=== PATIENT | male | born 1935 | race Caucasian/White ===

== ENCOUNTER 2021-08-16 06:38 | Inpatient (IN) ==
[2021-08-16] MEDS ORDERED: HYDROmorphone 2 MG/1 ML VIAL IV STA (07:15)
[2021-08-16] MEDS ORDERED: ONDANSETRON 4 MG/2 ML VIAL IV STA (07:15)
[2021-08-16] MEDS ORDERED: SODIUM CHLORIDE 0.9% 1,000 ML IV STA (07:15)
[2021-08-16 08:12] LABS: Basophils % 0.2 % (0.0-0.8); Eosinophils % 0.3 % (0.00-10.9); Hematocrit 39.3 VOL% (42.0-52.0); Hemoglobin 12.6 GM/DL (14.0-18.0); Immature Granulocytes % 0.4 %; Immature Granulocytes Absolute 0.05 #; Lymphocytes # 0.5 10*3/uL (1.4-4.0); Lymphocytes % 3.6 % (21.2-54.2); Mean Corpuscular HGB Conc 32.1 GM/DL (32-36); Mean Corpuscular Volume 101.6 FL (87-102); Mean Platelet Volume 11.5 FL (9.6-12.0); Monocytes % 7.4 % (1.7-12.7); Neutrophils % 88.1 % (38.7-73.9); Platelet Count 179 T/CUMM (130-400); Red Blood Count 3.87 MC/CUMM (3.8-5.5); Red Cell Distribution Width 12.3 % (9.3-17.3); White Blood Count 13.1 T/CUMM (4-12)
[2021-08-16 08:35] LABS: Hypochromasia 1+; Lymphocytes 1 % (20-55); Microcytosis 1+; Platelet Estimate Adequate; Segmented Neutrophils 90 % (50-85); Total Cells Counted 100
[2021-08-16 08:39] LABS: Albumin 3.6 G/DL (3.4-5.0); Bilirubin,Total 0.5 MG/DL (0.20-1.00); Potassium 4.5 MMOL/L (3.5-5.1); Total Protein 7.6 G/DL (6.4-8.2)
[2021-08-16] MEDS ORDERED: diphenhydrAMINE CAP 25 MG CAPSULE PO PRN (10:04)
[2021-08-16] MEDS ORDERED: DEXTROSE 50% 25 GM/50 ML VIAL IV PRN (10:04)
[2021-08-16] MEDS ORDERED: ALBUTEROL 2.5 MG/3 ML NEB RESP TX PRN (10:04)
[2021-08-16] MEDS ORDERED: ONDANSETRON 4 MG/2 ML VIAL IV PRN (10:04)
[2021-08-16] MEDS ORDERED: GLUCAGON 1 MG VIAL IM PRN (10:04)
[2021-08-16] MEDS ORDERED: DOCUSATE SODIUM 100 MG CAPSULE PO PRN (10:04)
[2021-08-16] MEDS ORDERED: SODIUM CHLORIDE 0.9% 1,000 ML IV SCH (10:30)
[2021-08-16] MEDS ORDERED: CLINDAMYCIN INJ 900 MG/50 ML PREMIX IV ONE (12:22)
[2021-08-16 12:45] LABS: PT Patient Result 10.9 SECS (10.5-12.0); Partial Thromboplastin Time 21.1 SECS (23.9-33.8)
[2021-08-16] MEDS: MORPHINE 2 MG/1 ML SYRINGE IV PRN (13:37)
[2021-08-16] MEDS ORDERED: ROCURONIUM 50 MG/5 ML VIAL IV ONE (14:49)
[2021-08-16] MEDS ORDERED: propofoL 200 MG/20 ML VIAL IV ONE (14:49)
[2021-08-16] MEDS ORDERED: SUCCINYLCHOLINE 200 MG/10 ML VIAL ONE (14:49)
[2021-08-16] MEDS ORDERED: fentaNYL 100 MCG/2 ML VIAL ONE (15:13)
[2021-08-16] MEDS ORDERED: ePHEDrine 50 MG/ML VIAL ONE (15:30)
[2021-08-16] MEDS ORDERED: SEVOFLURANE 1 UNIT/15 MINUTE INH ONE ×4 (15:46→17:50)
[2021-08-16] MEDS ORDERED: PHENYLEPHRINE 1 MG/10 ML SYRINGE IV ONE (15:46)
[2021-08-16] MEDS ORDERED: ETOMIDATE 40 MG/20 ML VIAL IV ONE (15:46)
[2021-08-16] MEDS ORDERED: BACITRACIN OINT 0.9 GM PACK TOP ONE (16:55)
[2021-08-16] MEDS ORDERED: GLYCOPYRROLATE 0.4 MG/2 ML VIAL ONE (17:21)
[2021-08-16] MEDS ORDERED: NEOSTIGMINE 10 MG/10 ML VIAL ONE (17:21)
[2021-08-16 17:56] LABS: Bilirubin,Urine Negative (Negative); Blood, Urine Negative (Negative); Glucose,Urine (UA) Negative (Negative); Hyaline Casts,Urine 1 /LPF (0-3); Ketones,Urine Negative (Negative); Nitrite,Urine Negative (Negative); Protein,Urine Negative; RBC,Urine 2 /HPF (0-4); Urine Appearance CLEAR (Clear); Urine Color Yellow (Yellow); Urine Specific Gravity 1.013 (1.001-1.035); Urine Urobilinogen < 2.0 EU/DL (0.2-1.0)
[2021-08-16] MEDS: CLINDAMYCIN INJ 900 MG/50 ML PREMIX IV SCH (21:18)
[2021-08-16] MEDS: COLESTIPOL 1 GM TABLET PO SCH (21:18)
[2021-08-16] MEDS: LACTATED RINGERS 1,000 ML IV SCH (21:23)
[2021-08-16] MEDS ORDERED: CHOLESTYRAMINE 4 GM PACK PO SCH (22:00)
[2021-08-17] MEDS: LACTATED RINGERS 1,000 ML IV SCH (04:45)
[2021-08-17] MEDS: CLINDAMYCIN INJ 900 MG/50 ML PREMIX IV SCH (05:54)
[2021-08-17 06:27] LABS: Albumin 2.7 G/DL (3.4-5.0); Calcium 7.9 MG/DL (8.5-10.1); Osmolality,Calculated 277.5 MOS/KG (273-304); Potassium 4.4 MMOL/L (3.5-5.1); Risk Ratio 2.92; Total Protein 5.9 G/DL (6.4-8.2); VLDL Cholesterol 14.6 MG/DL
[2021-08-17] MEDS: CLOPIDOGREL 75 MG TABLET PO SCH (09:24)
[2021-08-17] MEDS: PANTOPRAZOLE 40 MG TABLET PO SCH (09:24)
[2021-08-17] MEDS: LOSARTAN 25 MG TABLET PO SCH (09:24)
[2021-08-17] MEDS: METOPROLOL TARTRATE 25 MG TABLET PO SCH (12:26)
[2021-08-17 13:55] LABS: Basophils % 0.2 % (0.0-0.8); Eosinophils # 0.1 10*3/uL (0.0-0.87); Eosinophils % 1.5 % (0.00-10.9); Hematocrit 31.6 VOL% (42.0-52.0); Immature Granulocytes % 0.6 %; Immature Granulocytes Absolute 0.05 #; Lymphocytes # 0.6 10*3/uL (1.4-4.0); Lymphocytes % 6.8 % (21.2-54.2); Mean Corpuscular HGB Conc 31.6 GM/DL (32-36); Mean Corpuscular Volume 101.3 FL (87-102); Mean Platelet Volume 11.7 FL (9.6-12.0); Monocytes % 9.8 % (1.7-12.7); Neutrophils % 81.1 % (38.7-73.9); Platelet Count 130 T/CUMM (130-400); Red Blood Count 3.12 MC/CUMM (3.8-5.5); Red Cell Distribution Width 12.7 % (9.3-17.3); White Blood Count 8.8 T/CUMM (4-12)
[2021-08-17] MEDS ORDERED: SODIUM CHLORIDE 0.9% 1,000 ML IV SCH (14:00)
[2021-08-17] MEDS: COLESTIPOL 1 GM TABLET PO SCH ×2 (14:10→21:07)
[2021-08-17 14:14] LABS: Lymphocytes 12 % (20-55); Platelet Estimate Normal; Segmented Neutrophils 86 % (50-85); Total Cells Counted 100
[2021-08-17 14:15] LABS: Hypochromasia Slight; Microcytosis Slight
[2021-08-17] MEDS: SIMVASTATIN 20 MG TABLET PO SCH (20:51)
[2021-08-18 06:02] LABS: Basophils % 0.4 % (0.0-0.8); Eosinophils # 0.3 10*3/uL (0.0-0.87); Eosinophils % 3.9 % (0.00-10.9); Hematocrit 26.9 VOL% (42.0-52.0); Hemoglobin 8.8 GM/DL (14.0-18.0); Immature Granulocytes % 0.6 %; Immature Granulocytes Absolute 0.05 #; Lymphocytes # 0.8 10*3/uL (1.4-4.0); Lymphocytes % 10.1 % (21.2-54.2); Mean Corpuscular HGB Conc 32.7 GM/DL (32-36); Mean Platelet Volume 12.2 FL (9.6-12.0); Monocytes % 8.6 % (1.7-12.7); Neutrophils % 76.4 % (38.7-73.9); Platelet Count 109 T/CUMM (130-400); Red Blood Count 2.69 MC/CUMM (3.8-5.5); Red Cell Distribution Width 12.4 % (9.3-17.3); White Blood Count 8.3 T/CUMM (4-12)
[2021-08-18 06:08] LABS: Eosinophils 1 % (0-10); Hypochromasia Slight; Lymphocytes 8 % (20-55); Platelet Estimate Normal; Segmented Neutrophils 84 % (50-85); Total Cells Counted 100
[2021-08-18 06:11] LABS: Albumin 2.6 G/DL (3.4-5.0); Bilirubin,Total 1.2 MG/DL (0.20-1.00); Calcium 8.2 MG/DL (8.5-10.1); Osmolality,Calculated 266.5 MOS/KG (273-304); Potassium 3.8 MMOL/L (3.5-5.1); Total Protein 5.8 G/DL (6.4-8.2)
[2021-08-18] MEDS: METOPROLOL TARTRATE 25 MG TABLET PO SCH (08:43)
[2021-08-18] MEDS: LOSARTAN 25 MG TABLET PO SCH (08:43)
[2021-08-18] MEDS: COLESTIPOL 1 GM TABLET PO SCH ×2 (09:02→22:07)
[2021-08-18] MEDS: CLOPIDOGREL 75 MG TABLET PO SCH (09:02)
[2021-08-18] MEDS: LACTATED RINGERS 1,000 ML IV SCH ×2 (09:02→20:29)
[2021-08-18] MEDS: cefTRIAXone 1,000 MG in SODIUM CHLORIDE 0.9% 100 ML IV SCH (09:02)
[2021-08-18] MEDS: PANTOPRAZOLE 40 MG TABLET PO SCH (09:02)
[2021-08-18] MEDS: AZITHROMYCIN INJ 500 MG in SODIUM CHLORIDE 0.9% 250 ML IV SCH (09:48)
[2021-08-18] MEDS: SIMVASTATIN 20 MG TABLET PO SCH (20:30)
[2021-08-19 04:56] LABS: Basophils % 0.1 % (0.0-0.8); Eosinophils # 0.1 10*3/uL (0.0-0.87); Eosinophils % 1.6 % (0.00-10.9); Hematocrit 29.8 VOL% (42.0-52.0); Hemoglobin 9.5 GM/DL (14.0-18.0); Immature Granulocytes % 0.5 %; Immature Granulocytes Absolute 0.04 #; Lymphocytes # 0.7 10*3/uL (1.4-4.0); Lymphocytes % 7.5 % (21.2-54.2); Mean Corpuscular HGB Conc 31.9 GM/DL (32-36); Mean Corpuscular Volume 101.7 FL (87-102); Mean Platelet Volume 12.6 FL (9.6-12.0); Monocytes % 7.7 % (1.7-12.7); Neutrophils % 82.6 % (38.7-73.9); Platelet Count 126 T/CUMM (130-400); Red Blood Count 2.93 MC/CUMM (3.8-5.5); Red Cell Distribution Width 12.4 % (9.3-17.3); White Blood Count 8.8 T/CUMM (4-12)
[2021-08-19 05:25] LABS: Calcium 8.9 MG/DL (8.5-10.1); Osmolality,Calculated 273.8 MOS/KG (273-304)
[2021-08-19 05:38] LABS: Eosinophils 2 % (0-10); Hypochromasia 1+; Lymphocytes 7 % (20-55); Microcytosis 1+; Platelet Estimate Normal; Segmented Neutrophils 86 % (50-85); Total Cells Counted 100
[2021-08-19] MEDS: cefTRIAXone 1,000 MG in SODIUM CHLORIDE 0.9% 100 ML IV SCH (08:15)
[2021-08-19] MEDS: AZITHROMYCIN INJ 500 MG in SODIUM CHLORIDE 0.9% 250 ML IV SCH (09:34)
[2021-08-19] MEDS: METOPROLOL TARTRATE 25 MG TABLET PO SCH (09:49)
[2021-08-19] MEDS: LOSARTAN 25 MG TABLET PO SCH (09:49)
[2021-08-19] MEDS: CLOPIDOGREL 75 MG TABLET PO SCH (09:55)
[2021-08-19] MEDS: PANTOPRAZOLE 40 MG TABLET PO SCH (09:55)
[2021-08-19] MEDS: COLESTIPOL 1 GM TABLET PO SCH ×2 (11:06→22:38)
[2021-08-19] MEDS: LACTATED RINGERS 1,000 ML IV SCH (13:24)
[2021-08-19 13:53] LABS: Bacteria,Urine Occasional /HPF (Few); Bilirubin,Urine Negative (Negative); Blood, Urine Small mg/dL (Negative); Glucose,Urine (UA) Negative (Negative); Hyaline Casts,Urine 3 /LPF (0-3); Ketones,Urine 5 mg/dL (Negative); Mucus,Urine Occasional /LPF (Occasional); Nitrite,Urine Negative (Negative); Protein,Urine Negative; RBC,Urine 3 /HPF (0-4); Urine Appearance CLEAR (Clear); Urine Color Yellow (Yellow); Urine Specific Gravity 1.009 (1.001-1.035); Urine Urobilinogen < 2.0 EU/DL (0.2-1.0)
[2021-08-19] MEDS: MORPHINE 2 MG/1 ML SYRINGE IV PRN (16:18)
[2021-08-19] MEDS: SIMVASTATIN 20 MG TABLET PO SCH (20:26)
[2021-08-20] MEDS: LACTATED RINGERS 1,000 ML IV SCH (04:48)
[2021-08-20 06:31] LABS: Basophils % 0.3 % (0.0-0.8); Eosinophils # 0.4 10*3/uL (0.0-0.87); Eosinophils % 6.2 % (0.00-10.9); Hematocrit 26.6 VOL% (42.0-52.0); Hemoglobin 8.4 GM/DL (14.0-18.0); Immature Granulocytes % 0.5 %; Immature Granulocytes Absolute 0.03 #; Lymphocytes # 0.7 10*3/uL (1.4-4.0); Lymphocytes % 11.3 % (21.2-54.2); Mean Corpuscular HGB Conc 31.6 GM/DL (32-36); Mean Corpuscular Volume 101.1 FL (87-102); Mean Platelet Volume 12.4 FL (9.6-12.0); Monocytes % 10.1 % (1.7-12.7); Neutrophils % 71.6 % (38.7-73.9); Platelet Count 118 T/CUMM (130-400); Red Blood Count 2.63 MC/CUMM (3.8-5.5); Red Cell Distribution Width 12.5 % (9.3-17.3); White Blood Count 5.8 T/CUMM (4-12)
[2021-08-20 06:48] LABS: Calcium 8.4 MG/DL (8.5-10.1); Osmolality,Calculated 277.5 MOS/KG (273-304); Potassium 3.8 MMOL/L (3.5-5.1)
[2021-08-20] MEDS: cefTRIAXone 1,000 MG in SODIUM CHLORIDE 0.9% 100 ML IV SCH (07:52)
[2021-08-20] MEDS: PANTOPRAZOLE 40 MG TABLET PO SCH (09:30)
[2021-08-20] MEDS: CLOPIDOGREL 75 MG TABLET PO SCH (09:30)
[2021-08-20] MEDS: LOSARTAN 25 MG TABLET PO SCH (10:01)
[2021-08-20] MEDS: METOPROLOL TARTRATE 25 MG TABLET PO SCH (10:01)
[2021-08-20] MEDS: AZITHROMYCIN INJ 500 MG in SODIUM CHLORIDE 0.9% 250 ML IV SCH (10:02)
[2021-08-20] MEDS: COLESTIPOL 1 GM TABLET PO SCH ×2 (11:04→22:45)
[2021-08-20] MEDS: SIMVASTATIN 20 MG TABLET PO SCH (20:52)
[2021-08-21] MEDS: LACTATED RINGERS 1,000 ML IV SCH ×2 (01:22→05:02)
[2021-08-21] MEDS: MAGNESIUM HYDROXIDE SUSP 30 ML UDCUP PO PRN ×2 (04:45→09:04)
[2021-08-21 05:35] LABS: Basophils % 0.2 % (0.0-0.8); Eosinophils # 0.4 10*3/uL (0.0-0.87); Eosinophils % 6.6 % (0.00-10.9); Hemoglobin 8.2 GM/DL (14.0-18.0); Immature Granulocytes % 0.5 %; Immature Granulocytes Absolute 0.03 #; Lymphocytes # 0.9 10*3/uL (1.4-4.0); Lymphocytes % 14.9 % (21.2-54.2); Mean Corpuscular HGB Conc 31.5 GM/DL (32-36); Mean Corpuscular Volume 100.8 FL (87-102); Mean Platelet Volume 12.5 FL (9.6-12.0); Monocytes % 11.3 % (1.7-12.7); Neutrophils % 66.5 % (38.7-73.9); Platelet Count 130 T/CUMM (130-400); Red Blood Count 2.58 MC/CUMM (3.8-5.5); Red Cell Distribution Width 12.5 % (9.3-17.3); White Blood Count 5.9 T/CUMM (4-12)
[2021-08-21 05:58] LABS: Eosinophils 8 % (0-10); Hypochromasia 1+; Lymphocytes 12 % (20-55); Microcytosis 1+; Segmented Neutrophils 73 % (50-85); Total Cells Counted 100
[2021-08-21 06:04] LABS: Calcium 8.2 MG/DL (8.5-10.1); Osmolality,Calculated 277.7 MOS/KG (273-304); Potassium 3.6 MMOL/L (3.5-5.1)
[2021-08-21] MEDS: cefTRIAXone 1,000 MG in SODIUM CHLORIDE 0.9% 100 ML IV SCH (09:03)
[2021-08-21] MEDS: PANTOPRAZOLE 40 MG TABLET PO SCH (09:03)
[2021-08-21] MEDS: LOSARTAN 25 MG TABLET PO SCH (09:04)
[2021-08-21] MEDS: METOPROLOL TARTRATE 25 MG TABLET PO SCH (09:04)
[2021-08-21] MEDS: CLOPIDOGREL 75 MG TABLET PO SCH (09:04)
[2021-08-21] MEDS: AZITHROMYCIN INJ 500 MG in SODIUM CHLORIDE 0.9% 250 ML IV SCH (10:42)
[2021-08-21] MEDS: COLESTIPOL 1 GM TABLET PO SCH (10:43)
[2021-08-21 12:12] VITALS: BP 108/60
== END 2021-08-21 13:25 | DRG 480 ==
LOC: N.ED 06:38 → N.EDINP 10:04 → N.3E 12:24
PROVIDERS: ADMIT Internal Medicine; ATTEND Internal Medicine